=== PATIENT | male | born 1950 | race Caucasian/White ===

== ENCOUNTER 2020-02-17 19:55 | Emergency (ER) | payer OTHER, SELFPAY ==
[2020-02-17 19:57] VITALS: BP 92/59; PULSE 80; RESP 22; TEMP 36.6; O2SAT 96; BMI 24.3
[2020-02-17 20:24] LABS: Basophils % 0.2 %; Eosinophils # 0.2 10^3/uL (0.0-0.8); Eosinophils % 2.9 %; Hematocrit 34.9 % (42.0-52.0); Lymphocytes # 1.5 10^3/uL (0.8-4.8); Lymphocytes % 23.5 %; Mean Corpuscular HGB Conc 31.5 g/dL (30.0-36.0); Mean Corpuscular Hemoglobin 25.4 pg (28.0-34.0); Mean Corpuscular Volume 80.6 fL (80-94); Mean Platelet Volume 10.5 fL (7.4-10.4); Monocytes # 0.7 10^3/uL (0.2-0.9); Monocytes % 10.4 %; Neutrophils # 3.94 10^3/uL (1.8-7.7); Neutrophils % 62.8 %; Nucleated Red Blood Cells % 0 %; Platelet Count 247 10^3/cmm (130-400); Red Blood Count 4.33 10^6/uL (4.1-5.3); Red Cell Distribution Width 15.2 % (12.1-15.1); White Blood Count 6.3 10^3/uL (4.0-10.0)
[2020-02-17] MEDS: sodium chloride 0.9% 1,000 ML 999 ML IV (20:35)
[2020-02-17 20:44] LABS: Alanine Aminotransferase 19 U/L (0-41); Albumin Level 3.8 g/dL (3.5-5.2); Alcohol Level 177 mg/dL (0-10); Alkaline Phosphatase 70 IU/L (40-130); Anion Gap 15.4 (5-19); Aspartate Amino Transferase 32 U/L (0-40); Blood Urea Nitrogen 10 mg/dL (8-23); Calcium 9.2 mg/dL (8.5-10.5); Carbon Dioxide 25 mmol/L (22-29); Chloride 105 mmol/L (98-107); Globulin 2.7 g/dL (1.3-4.6); Glucose 103 mg/dL (65-115); Osmolality Calculated 291 mOsm/kg (285-295); Potassium 4.4 mmol/L (3.5-5.1); Sodium 141 mmol/L (136-145); Total Bilirubin 0.2 mg/dL (0.15-1.2); Total Protein 6.5 g/dL (6.6-8.7)
[2020-02-17 20:46] LABS: Acetaminophen < 5.0 ug/mL (10-30); Salicylate < 0.3 mg/dL (3-10)
[2020-02-17] MEDS: diphenhydrAMINE 50 mg/mL SDV 1mL 25 MG IVP (20:50)
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
--- NOTE | 2020-02-17 21:29 | ECG_ITS ---
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 Measurements Intervals [place] Rate: 76 P: 69 CT: 184 QRS: 9 QRSD: 86 T: 30 QT: 369 QTc: 415 Interpretive Statements SINUS RHYTHM No previous ECG available for comparison Electronically Signed On 02-18-2020 21:24:19 DRAFTER ASSISTANT by Sonali Andrea M.D. [id number]
[2020-02-17 21:50] LABS: Amphetamines Screen Urine Negative (Negative); Barbiturates Screen Urine Negative (Negative); Benzodiazepines Screen Urine Negative (Negative); Cocaine Screen Urine Negative (Negative); Opiate Screen Urine Negative (Negative); PCP Screen Urine Negative (Negative); THC Screen Urine Negative (Negative)
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
[2020-02-17 22:44] LABS: SARS Covid-2 Antigen Negative (Negative)
--- NOTE | 2020-02-17 22:56 | PC.SOCIAL ---
Addendum entered by Charles Kirkland, [facility] 02/18/20 05:19: Patient accepted and report given. Asked staff to call and update later in the morning so she isn't woken up but before he leaves. Addendum entered by Charles Kirkland, [facility] 02/18/20 05:02: Updated Amol at [facility] around 0430 and send most recent BAL of 76. She will call their physician then contact the ED with further instructions. Addendum entered by Charles Kirkland, [facility] 02/18/20 04:07: Discussed with patient that we'd like for him to go to a geriatric psych unit but if he wanted to go to [facility] as his had requested it would need to be his own choice. He agrees that this would be a good idea and said he would go voluntarily. Waiting for next BAL to come back to send to [facility]. Addendum entered by Charles Kirkland, [facility] 02/18/20 02:22: Update faxed to [facility] at 0217, patient is still unable to give consent at this time. Original Note: Patient brought in by police. Is cooperative but inebriated. Officer completed affidavit. Spoke to his spouse Cate. She is concerned about his worsening depression. He does not often drink but when he does it is to excess. He will think back on the past and things he wishes he had done differently. She is in agreement with the physician that karmen-psych placement is a good idea. She would prefer him to go to [facility] as it is closest to them and he has had surgeries at [facility] in the past. Explained to her that I would try there first but he would need to be voluntary in order to go there as 96 hour holds [place] not [place] state lines. She thinks he likely won't agree to go but would like us to try and speak to him about it. If he does not agree to go to [facility] she understands that a unit in [place] will be tried. She reports he does not have an advanced directive so there is no one else that can sign him in. Spoke to Amol at [facility]. She reports they do have a male bed open and invites information to be faxed. His BAL would have to be under 100 before they would consider acceptance. Will fax some initial paperwork once complete and will try to speak to patient about going voluntarily once he is more clearer.
--- NOTE | 2020-02-18 00:41 | XR_ITS ---
WS: [id number] XR chest 1V portable [id number] REASON FOR EXAM: placement FINDINGS: Significant respiratory motion on the examination which accentuates the interstitial bronchovascular markings and an infiltrative process cannot be excluded. The thoracic aorta is moderately tortuous without dilatation. The heart is not enlarged. XR/XR chest 1V portable [id number] IMPRESSION: Significant respiratory motion which degrades the diagnostic quality of the exa mination and an infiltrative process in both lower lungs cannot be excluded.
[2020-02-18 00:42] VITALS: BP 122/82; PULSE 85; RESP 18; O2SAT 94
[2020-02-18 00:46] LABS: Alcohol Level 126 mg/dL (0-10)
[2020-02-18 00:47] LABS: Add Urine Microscopic? NO
--- NOTE | 2020-02-18 01:06 | CTR_ITS ---
PROCEDURE INFORMATION: Exam: CT Angiography Chest With Contrast Exam date and time: 02/18/2020 1:09 AM Age: 69 years old Clinical indication: Abnormal findings; Abnormal radiologic exam of lung or chest; Patient HX: Abnormal cxr. Per patient, history of thoracic aneurysm. ; Additional info: Dyspnea, abnormal chest x-ray TECHNIQUE: Imaging protocol: Computed tomographic angiography of the chest with intravenous contrast. 3D rendering (Not supervised by radiologist): MIP and/or 3D reconstructed images were created by the technologist. Radiation optimization: All CT scans at this facility use at least one of these dose optimization techniques: automated exposure control; mA and/or kV adjustment per patient size (includes targeted exams where dose is matched to clinical indication); or iterative reconstruction. Contrast material: OMNI 350; Contrast volume: 77 ml; Contrast route: INTRAVENOUS (IV); COMPARISON: CR XR chest 1V portable [id number] 02/18/2020 12:38 AM RADIATION DOSE METRICS: Total DLP (mGy-cm): 554.37 FINDINGS: Pulmonary arteries: Normal. No pulmonary emboli. Aorta: Ascending aorta is dilated to 5 cm. No aortic dissection. Lungs: Mild coarsening of pulmonary interstitial markings with a few sites of traction bronchiectasis. Pleural space: Bilateral calcified pleural plaquing. Heart: Dense coronary arterial calcifications are noted. Mediastinal space: Small hiatal hernia. Small fluid in esophagus can represent reflux or stasis. Lymph nodes: Mild mediastinal and hilar lymph node prominence. Bones/joints: Suture anchors are seen at humeral heads. Cervical spine hardware is in place. Soft tissues: Unremarkable. CT/CT angio chest PE protcl [id number] IMPRESSION: No evident pulmonary embolic disease. 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 Additional details as above. Radiation Dose CTDIVOL = (mGy): DLP = 554.37 (mGy-cm)
[2020-02-18 01:10] LABS: Bilirubin Urine Neg (Negative); Blood Urine Neg (Negative); Glucose Urine UA Norm (Normal); Ketones Urine Negative (Negative); Leukocyte Esterase Urine Negative (Negative); Nitrate Urine Negative (Negative); Protein Urine Neg (Negative); Urine Appearance Clear (CLEAR); Urine Color Yellow (Yellow); Urobilinogen Urine Norm (Negative)
[2020-02-18] MEDS: iohexol 350 mg/mL 100 mL Btl IV (01:24)
[2020-02-18 02:00] VITALS: BP 158/88; PULSE 104; RESP 16; O2SAT 97
[2020-02-18 02:33] LABS: NT Pro B Type Natriuretic Pept 529 pg/mL (0-125)
[2020-02-18 04:02] LABS: Alcohol Level 76 mg/dL (0-10)
[2020-02-18 05:00] VITALS: BP 136/90; PULSE 83; RESP 16; O2SAT 94
[2020-02-18 06:07] VITALS: BP 136/90; PULSE 83; RESP 16; O2SAT 94
== END 2020-02-18 06:25 ==
PROVIDERS: Student in an Organized Health Care Education/Training Program; Emergency Provider Emergency Medicine; PCP Family Medicine
DX: R45.851 Suicidal ideations (principal); R45.850 Homicidal ideations
CPT/HCPCS: 12345; 51701; 71045; 71275; 80053; 80306; 80307; 81003; 83880; 85025; 87426; 93005; 96361; 96374; 99284; 99285; J1200; J7030; Q9967